=== PATIENT | male | born 1995 | race Caucasian/White ===

== ENCOUNTER 2023-02-15 08:39 | Day surgery (SDC) | payer BC ==
[2023-02-15] MEDS ORDERED: LACTATED RINGERS 1,000 ML IV ONE (09:03)
[2023-02-15 09:14] VITALS: TEMP 98.3
[2023-02-15] MEDS ORDERED: fentaNYL (PF) 50 MCG/ML 2 ML AMP ONE (09:28)
[2023-02-15] MEDS ORDERED: PROPOFOL 10 MG/ML 20 ML VIAL IV ONE (09:28)
[2023-02-15] MEDS ORDERED: LIDOCAINE 1% INJ 10MG/ML (20 ML MDV) ONE (09:28)
[2023-02-15] MEDS ORDERED: KETAMINE HCL IN 0.9 % NACL 50 MG/5 ML SYRINGE ONE (09:28)
--- NOTE | 2023-02-15 09:35 | P.GSHP ---
History of Present Illness H&P Date: 02/15/23 Chief Complaint: GERD [id number] male presents today for EGD. Patient's issues with GERD. Medications and Allergies Home Medications Medication Instructions Recorded Confirmed Type Omeprazole 20 mg PO DAILY 02/15/23 02/15/23 History Allergies Allergy/AdvReac Type Severity Reaction Status Date / Time No Known Allergies Allergy Verified 02/15/23 08:58 Surgical - Exam Vital Signs Temp Pulse Resp BP Pulse Ox 98.3 F 109 H 18 166/93 98 02/15/23 08:56 02/15/23 08:56 02/15/23 08:56 02/15/23 08:56 02/15/23 08:56 - General well developed, well nourished, no distress - Eyes PERRL - ENT normal pinna - Neck no masses - Respiratory normal expansion Assessment and Plan Assessment: GERD. We'll perform EGD.
--- NOTE | 2023-02-15 09:46 | P.OP ---
Date of Procedure: 02/15/23 Preoperative Diagnosis: GERD Postoperative Diagnosis: Antral gastritis Small sliding hiatal hernia Procedure(s) Performed: EGD Anesthesia: MAC Surgeon: Jose Jimenez Pathology: other (Antrum and esophagus) Condition: stable Disposition: PACU Description of Procedure: Patient's placed on the endoscopy table in the lateral position. He received IV sedation. The gastro-/oropharynx passed in the esophagus and stomach. Scope was placed through the pylorus. The first and second portion of the duodenum appeared normal. Scope was brought back the antrum this was mildly inflamed. A biopsies performed. Scope was unretroflexed and there was a small sliding hiatal hernia. The GE junction was at 39 cm. The distal esophagus appeared mildly inflamed. A biopsies performed. The proximal esophagus appeared normal. Scope withdrawn for patient.
[2023-02-15 10:00] VITALS: RESP 16
[2023-02-15 10:45] VITALS: BP 1389/81; PULSE 87
== END 2023-02-15 10:47 | disposition home or self-care (01) ==
LOC: ORWHC2ENDO 08:39
PROVIDERS: ATTEND Surgery
DX: K29.50 Unspecified chronic gastritis without bleeding (principal); K21.9 Gastro-esophageal reflux disease without esophagitis; K44.9 Diaphragmatic hernia without obstruction or gangrene; Z79.899 Other long term (current) drug therapy
CPT/HCPCS: 88305; 43239; J2001; J3010; J2704

== ENCOUNTER → 2023-03-01 | Outpatient (CLI) | payer BC ==
--- NOTE | 2023-03-01 11:35 | FL ---
EXAMINATION TYPE: FL UGI air w esophagus DATE OF EXAM: 03/01/2023 10:10 AM COMPARISON: NONE CLINICAL HISTORY: Difficulty in swallowing. A total of 65 seconds of fluoroscopic time was utilized during procedure and 14 images obtained. Preliminary view of the abdomen reveals a normal bowel gas pattern. Upper GI examination was performed according to the air contrast technique. Barium and effervescent crystal was swallowed without difficulty or delay. Esophageal peristalsis and motility are within no rmal limits. There is no evidence for esophagitis, intraluminal mass, hiatal hernia or gastroesophag eal reflux. The stomach has a normal appearance in terms of its size, shape and location. No gastri c filling defects or ulcer craters are seen. Small diverticulum duodenal bulb. The duodenal bulb and sweep are also free of intraluminal lesion or ulcer crater. And single contrast cervical esophagram was also performed following the ingestion of thin liquid bar ium. There is no evidence for aspiration or penetration. No masses are seen. No filling defects ar e evident. IMPRESSION: Unremarkable evaluation.
== END | disposition home or self-care (01) ==
LOC: RADUSWWP 09:35
PROVIDERS: ATTEND Surgery
DX: R13.10 Dysphagia, unspecified (principal); K21.9 Gastro-esophageal reflux disease without esophagitis
CPT/HCPCS: 74246

== ENCOUNTER → 2023-06-04 | Outpatient (CLI) | payer BC ==
--- NOTE | 2023-06-04 12:27 | NM ---
Nuclear medicine hepatobiliary scan. HISTORY: Pain. DOSAGE: The patient received 8 0z Ensure plus and 4.6 mCi of Technetium 99m Choletec. FINDINGS: There is normal hepatic extraction. The gallbladder is seen by 10 minutes. Radiotracer see n just inferior to the gallbladder on the 38 minute image is of uncertain etiology. May be within sma ll bowel. There is biliary to bowel clearance by 40 minutes. Ejection fraction is 70%. IMPRESSION: 1. No evidence of cholecystitis. 2. Ejection fraction of 70%.
== END | disposition home or self-care (01) ==
LOC: RADNMMAIN 07:07
PROVIDERS: ATTEND Surgery
DX: R10.11 Right upper quadrant pain (principal)
CPT/HCPCS: 78227; A9537; J2805

== ENCOUNTER → 2024-05-26 | Outpatient (CLI) | payer OTHER ==
--- NOTE | 2024-05-26 16:47 | CA ---
Exercise Stress Test Report Name: Eren Larson Exam Date: 05/26/2024 12:15 Exam Location: [facility] Stress Ht (in): 70 Wt (lb): 210 BSA: 2.13 Ordering Phys: Hira Gomez MD Referring Phys: Hira Gomez MD Technologist: ZENA OCONNELL Age: 28 Gender: M : 1995 Procedure CPT: Indications: I16.0 ICD-10 Codes: Patient History: CHEST PAIN, PALPITATIONS, HTN, FORMER SMOKER (VAPE) Medications: LISINOPRIL, LEXAPRO Meds past 24 hrs: Pretest Chest Pain: STRESS TEST Fareed Protocol Exercise Duration (min:sec): 07:[address] Depressions (mm): Angina Score: Pennington Score: Resting HR (bpm): 154 Peak HR (bpm): 197 Resting BP (mmHg): 134 / 84 Peak BP (mmHg): 186 / 78 MPHR: 192 Target HR: 163 % MPHR: 103 METS: 9.2 Total Dose: Peak Dose: Atropine: Double Product: 21350 BP Response: Stress Termination: 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 Patient exercised into Stage 2 for a total of 7 minutes and 13 seconds reaching a total of 9.2 METS. Patient's maximum heart rate was 197 which represented 100% age- predicted maximum heart rate. Stress EKG findings: At baseline patient's EKG showed sinus tachycardia with HR 150 bpm, normal axis, no significant ST or T wave abnormalities. At peak exercise, EKG showed no change from baseline. Conclusions: 1. Normal EKG response to exercise without evidence of inducible ischemia. 2. Good exercise capacity. 3. Resting tachycardia. Clinical correlation recommended Dr. Nahid Santamaria DO (Electronically Signed) Final Date: 26 May 2024 16:47
== END | disposition home or self-care (01) ==
LOC: RADNMMAIN 11:11
PROVIDERS: ATTEND Family Medicine
DX: R94.31 Abnormal electrocardiogram [ECG] [EKG] (principal); I16.0 Hypertensive urgency; R06.02 Shortness of breath; R00.0 Tachycardia, unspecified
CPT/HCPCS: 93017

== ENCOUNTER 2024-10-15 12:12 | Day surgery (SDC) | payer OTHER ==
[~2024-10-15 12:12] MED LIST: LIDOCAINE 1% (10MG/ML) FOR IV START INTRADERMA PRN
[2024-10-15] MEDS: IV FLUID CONTINUATION 1,000 ML IV ONE (13:33)
[2024-10-15 13:41] VITALS: TEMP 98
[2024-10-15] MEDS: LACTATED RINGERS 1,000 ML IV SCH (13:42)
[2024-10-15] MEDS ORDERED: LIDOCAINE 2% (PF) 20 MG/ML 5 ML VIAL ONE (14:25)
[2024-10-15] MEDS ORDERED: PROPOFOL 10 MG/ML 20 ML VIAL IV ONE (14:25)
--- NOTE | 2024-10-15 14:31 | P.PCN ---
Date of Procedure: 10/15/24 Procedure(s) Performed: BRIEF HISTORY: Patient is a 29-year-old, pleasant, white male scheduled for an upper endoscopy as a part evaluation of GERD, epigastric pain and episode of coffee-ground emesis. PROCEDURE PERFORMED: Esophagogastroduodenoscopy with biopsy. PREOPERATIVE DIAGNOSIS: GERD/epigastric pain and coffee-ground emesis. IV sedation per anesthesia. PROCEDURE: After informed consent was obtained, the patient was brought into the endoscopy unit. IV conscious sedation was administered by Anesthesia under continuous monitoring. Initially the Olympus GIF-140 video endoscope was inserted into the mouth. Esophagus intubated without any difficulty. It was gradually advanced into the stomach and duodenum and carefully examined. The bulb and the second part of the duodenum appeared normal. The scope at this time was withdrawn to the stomach, adequately insufflated with air, and upon careful examination, mucosa of the antrum, body had patchy areas of erythema consistent with gastritis and biopsies were done from this area. No ulcerations noted. Mucosa of the, cardia and the fundus appeared normal. The scope was then withdrawn into the esophagus. Mild sliding-type hiatal hernia noted. The GE junction was located at 39 cm from the incisors. The esophagus appeared normal. There were no erosions or ulcerations seen and the patient tolerated the procedure well. IMPRESSION: 1. Small hiatal hernia but no evidence of esophagitis. 2. Mild antral gastritis. RECOMMENDATIONS: The findings of this examination were discussed with the patient as well as his family.. He was advised to follow-up with the biopsy results. Continue with omeprazole 20 mg daily and follow antireflux measures.
[2024-10-15 14:43] VITALS: PULSE 81; RESP 14
[2024-10-15 14:55] VITALS: BP 140/97
== END 2024-10-15 15:11 | disposition home or self-care (01) ==
LOC: ORWHC2ENDO 12:12
PROVIDERS: ATTEND Internal Medicine Gastroenterology
DX: K29.50 Unspecified chronic gastritis without bleeding (principal); K44.9 Diaphragmatic hernia without obstruction or gangrene; K21.9 Gastro-esophageal reflux disease without esophagitis; I10 Essential (primary) hypertension; F41.9 Anxiety disorder, unspecified; F12.90 Cannabis use, unspecified, uncomplicated; U07.0 Vaping-related disorder; Z79.899 Other long term (current) drug therapy
CPT/HCPCS: 88305; 43239; J2704; J2003